=== PATIENT | male | born 1995 | race Caucasian/White ===

== ENCOUNTER 2018-05-15 14:59 | Emergency (ER) | payer OTHER ==
[2018-05-15 18:25] VITALS: BP 131/63
--- NOTE | 2018-05-15 18:43 | UC ---
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 -he had no relief w/ prednisone. -started with 1 large patch on chest and has sppread to chest, back, abd, legs and arms. -no d/c, + itching. -denies welling in throat, lips, tongue. no SOB. -has been very sleepy with taking benadryl. - History of Current Complaint Chief Complaint: UCRash Time Seen by Provider: 05/15/18 18:19 Stated Complaint: SKIN COMPLAINT - RASH Pain Intensity: 4 - Allergy/Home Medications Allergies/Adverse Reactions: Allergies Allergy/AdvReac Type Severity Reaction Status Date / Time No Known Allergies Allergy Verified 05/15/18 18:17 Home Medications: Home Medications NK [No Home Medications Reported] 05/15/18 [History Confirmed 05/15/18] PMH/Surg Hx/FS Hx/Imm Hx Previously Healthy: Yes - Surgical History Surgical History: None - Family History Known Family History: Positive: Hypertension - Social History Alcohol Use: None Substance Use Type: None Smoking Status (MU): Heavy Every Day Tobacco Smoker Type: Cigarettes Amount Used/How Often: 1 ppd Review of Systems All Other Systems Reviewed And Are Negative: Yes Constitutional: Positive: Negative Skin: Positive: Rash Eyes: Positive: Negative ENT: Positive: Negative Respiratory: Positive: Negative Cardiovascular: Positive: Negative Gastrointestinal: Positive: Negative Genitourinary: Positive: Negative Motor: Positive: Negative Neurovascular: Positive: Negative Musculoskeletal: Positive: Negative Neurological: Positive: Negative Psychological: Positive: Negative Is Patient Immunocompromised?: No Physical Exam Triage Information Reviewed: Yes Appearance: Well-Appearing, No Pain Distress, Well-Nourished - ithcing all over Vital Signs: Initial Vital Signs Temp 99.3 F 05/15/18 18:17 Pulse 92 05/15/18 18:17 Resp 17 05/15/18 18:17 BP 131/63 05/15/18 18:17 Pulse Ox 100 04/05/19 18:17 Vital Signs Reviewed: Yes Eye Exam: Normal ENT: Positive: TMs normal, Tonsillar swelling - (has a "cold" now), Uvula midline, Other - no swelling of lips, tongue or uvula Neck exam: Normal Neck: Positive: Supple, Nontender, No Lymphadenopathy Respiratory Exam: Normal Respiratory: Positive: Lungs clear, Normal breath sounds, No respiratory distress, No accessory muscle use Cardiovascular Exam: Normal Cardiovascular: Positive: RRR, No Murmur Abdominal Exam: Normal Abdomen Description: Positive: Soft Musculoskeletal Exam: Normal Neurological Exam: Normal Psychological Exam: Normal Skin: Positive: Rashes - + salmon pink oval patches, scaling, elevated but not blanching patchers. (mom has same rash on left AC fossa). no dc. hearld patch mid chest. rash chest, back, abd, arms, legs Course/Dx - Course Course Of Treatment: -rash is not c/w urticaria. rash is salmon pink and scaly and excoriated in nature. not coalesced but individual lesions w/ large initial apryl patch. prednisone oral has not been helpful at all and therefore not idnicated. discussed this is self limited disease. low supsicion for allergic rxn. adv ER via 911 w/ any SOB, slwelling of lips, tongue, throat. they understood me well adn naee agreeable w/ plan - Differential Diagnoses - Skin Complaint Differential Diagnoses: Angioedema, Cellulitis, Contact Dermatitis, Impetigo - Diagnoses Provider Diagnosis: Pityriasis rosea Discharge - Sign-Out/Discharge Documenting (check all that apply): Patient Departure All imaging exams completed and their final reports reviewed: No Studies - Discharge Plan Condition: Stable Disposition: HOME Patient Education Materials: Pityriasis rosea (ED) Referrals: No Primary Care Phys,NOPCP [Primary Care Provider] - Additional Instructions: We talked about the diagnosis of pityriasis rosea. This is not consistent with allergic reaction but a benign condition without a cure. It should resolved after 10-12 weeks of symptoms. -The prednisone you were initially given did not help the rash and therefore giving more at this time is not indicated. -Using OTC aquaphor or eucerin can be helpful to soothe the itching. Keep your appt with your new PCP on 05/22 for follw up. You should go to the ER with any shortness of breath, swelling of your lips, tongue or throat. - Billing Disposition and Condition Condition: STABLE Disposition: Home
== END 2018-05-15 19:21 | disposition home or self-care (01) ==
LOC: UCCORT 14:59
DX: L42 Pityriasis rosea (principal); F17.210 Nicotine dependence, cigarettes, uncomplicated
CPT/HCPCS: 99201; G0463